=== PATIENT | female | born 1990 | race Native Hawaiian/Other Pacific Islander ===

== ENCOUNTER 2016-03-13 22:38 | Emergency (ER) | payer OTHER ==
[~2016-03-13] VITALS: Ht 167.6 cm; Wt 63.5 kg
[2016-03-14 00:41] VITALS: BP 150/92; TEMP 98
== END 2016-03-14 00:42 | disposition home or self-care (01) ==
LOC: ED 22:38
DX: L02.416 Cutaneous abscess of left lower limb (principal)
CPT/HCPCS: 87070; 87077; 87185; 87186; 87205; 99283

== ENCOUNTER 2016-09-05 08:59 | Outpatient (CLI) | payer OTHER ==
[2016-09-05 09:44] LABS: PLATELET COUNT 258 K/uL (152-353)
[2016-09-05 10:28] LABS: POTASSIUM 3.6 mmol/L (3.6-5.2); SODIUM 138 mmol/L (136-145)
== END 2016-09-05 19:11 | disposition home or self-care (01) ==
LOC: LABW 08:59 → RESP 09:00 → LABW 19:11
PROVIDERS: Internal Medicine
DX: I10 Essential (primary) hypertension (principal)
CPT/HCPCS: 36415; 80053; 80061; 81000; 81025; 84439; 84443; 85027; 93306

== ENCOUNTER 2017-06-13 11:22 | Outpatient (CLI) | payer OTHER ==
[2017-06-13 12:19] LABS: PLATELET COUNT 280 K/uL (152-353)
[2017-06-13 13:04] LABS: POTASSIUM 4.1 mmol/L (3.6-5.2)
== END 2017-06-13 19:37 | disposition home or self-care (01) ==
LOC: LABW 11:22
PROVIDERS: Internal Medicine
DX: M54.5 Low back pain (principal); I10 Essential (primary) hypertension
CPT/HCPCS: 36415; 80053; 80061; 81000; 84443; 85027

== ENCOUNTER 2018-01-17 10:54 | Outpatient (CLI) | payer OTHER ==
[2018-01-17 11:30] LABS: POTASSIUM 4.1 mmol/L (3.6-5.2)
== END 2018-01-17 20:38 | disposition home or self-care (01) ==
LOC: LABW 10:54
PROVIDERS: Internal Medicine
DX: I10 Essential (primary) hypertension (principal); E78.00 Pure hypercholesterolemia, unspecified
CPT/HCPCS: 36415; 80053; 80061

== ENCOUNTER 2019-07-27 11:18 | Outpatient (CLI) | payer OTHER ==
[2019-07-27 11:36] LABS: PLATELET COUNT 271 K/uL (152-353)
[2019-07-27 12:03] LABS: POTASSIUM 3.9 mmol/L (3.6-5.2)
== END 2019-07-27 23:12 | disposition home or self-care (01) ==
LOC: LABW 11:18
PROVIDERS: Internal Medicine
DX: I10 Essential (primary) hypertension (principal)
CPT/HCPCS: 36415; 80053; 80061; 81000; 84439; 84443; 85027; 87086; 87088

== ENCOUNTER 2020-02-25 10:00 | Outpatient (CLI) | payer OTHER | END 2020-02-25 21:11 | disposition home or self-care (01) | LOC: LAB 10:00 | PROVIDERS: ATTEND Internal Medicine | DX: R05 Cough (principal); R19.7 Diarrhea, unspecified; Z11.59 Encounter for screening for other viral diseases | CPT/HCPCS: 87635; G2023; U0003 ==

== ENCOUNTER 2020-02-27 11:01 | Outpatient (CLI) | payer OTHER | END 2020-02-27 19:18 | disposition home or self-care (01) | LOC: LAB 11:01 | PROVIDERS: ATTEND Internal Medicine | DX: R19.7 Diarrhea, unspecified (principal) | CPT/HCPCS: 83630; 87324; 87449; 87507 ==

== ENCOUNTER 2020-03-04 08:23 | Outpatient (CLI) | payer OTHER ==
[2020-03-04 08:38] LABS: PLATELET COUNT 293 K/uL (152-353)
[2020-03-04 09:07] LABS: POTASSIUM 4.2 mmol/L (3.6-5.2)
== END 2020-03-04 23:59 | disposition home or self-care (01) ==
LOC: LABW 08:23
PROVIDERS: ATTEND Internal Medicine
DX: I10 Essential (primary) hypertension (principal)
CPT/HCPCS: 36415; 80053; 80061; 81000; 84443; 85027; 87086; 87088

== ENCOUNTER 2020-09-25 12:07 | Emergency (ER) | payer OTHER ==
[~2020-09-25] VITALS: Ht 167.6 cm; Wt 84.8 kg
[2020-09-25 12:45] VITALS: BP 128/90; TEMP 97.7
== END 2020-09-25 14:17 | disposition home or self-care (01) ==
LOC: ED 12:07
DX: J06.9 Acute upper respiratory infection, unspecified (principal); Z20.822 Contact with and (suspected) exposure to COVID-19
CPT/HCPCS: 87635; 99282; U0003

== ENCOUNTER 2021-10-12 09:24 | Emergency (ER) | payer OTHER ==
[~2021-10-12] VITALS: Ht 167.6 cm; Wt 84.8 kg
[2021-10-12 09:28] VITALS: TEMP 98.2
[2021-10-12] MEDS ORDERED: METO-837 PO (11:10)
[2021-10-12 11:21] VITALS: BP 145/103
== END 2021-10-12 11:23 | disposition home or self-care (01) ==
LOC: ED 09:24
DX: I16.0 Hypertensive urgency (principal); R51.9 Headache, unspecified; R42 Dizziness and giddiness
CPT/HCPCS: 99284

== ENCOUNTER 2022-01-02 09:18 | Emergency (ER) | payer OTHER ==
[~2022-01-02] VITALS: Ht 167.6 cm; Wt 83.5 kg
[~2022-01-02 09:18] MED LIST: METO-837 PO
[2022-01-02 09:27] VITALS: TEMP 99.1
[2022-01-02 10:35] LABS: PLATELET COUNT 273 K/uL (152-353)
[2022-01-02 10:44] LABS: POTASSIUM 4.1 mmol/L (3.6-5.2)
[2022-01-02 11:50] VITALS: BP 145/92
== END 2022-01-02 12:16 | disposition home or self-care (01) ==
LOC: ED 09:18
PROVIDERS: Emergency Medicine
DX: F41.8 Other specified anxiety disorders (principal)
CPT/HCPCS: 80053; 84443; 85027; 93005; 99284

== ENCOUNTER 2022-01-15 07:35 | Outpatient (CLI) | payer OTHER | END 2022-01-15 19:34 | disposition home or self-care (01) | LOC: LABW 07:35 | PROVIDERS: ATTEND Internal Medicine | DX: I10 Essential (primary) hypertension (principal) | CPT/HCPCS: 36415; 80061 ==

== ENCOUNTER 2022-05-04 12:35 | Outpatient (CLI) | payer OTHER ==
[2022-05-04 12:54] LABS: PLATELET COUNT 262 K/uL (152-353)
[2022-05-04 13:25] LABS: POTASSIUM 3.9 mmol/L (3.6-5.2)
== END 2022-05-04 19:17 | disposition home or self-care (01) ==
LOC: LABW 12:35
PROVIDERS: ATTEND Internal Medicine
DX: I10 Essential (primary) hypertension (principal); E78.00 Pure hypercholesterolemia, unspecified
CPT/HCPCS: 36415; 80053; 80061; 81002; 84443; 85027